=== PATIENT | male | born 1950 | race Hispanic/Latino ===

== ENCOUNTER 2016-07-28 23:41 | Emergency (ER) | payer SELFPAY ==
[~2016-07-28 23:41] MED LIST: ADRENALIN ONE; CALCIUM CHLORIDE IV ONE; SODIUM BICARBONATE IV ONE
--- NOTE | 2016-07-29 02:47 | Emergency Department Report ---
ED CPR HPI - General Chief Complaint: Cardiac Arrest/CPR Stated Complaint: CARDIAC ARREST Time Seen by Provider: 07/28/16 23:41 Source: EMS Mode of arrival: Stretcher Limitations: Other - History of Present Illness Initial Comments: 65-year-old male presents to the hospital status post cardiac arrest. Patient brought into the ER intubated with chest compressions in progress. EMS reports that it was a witnessed arrest and patient fell off the bed and became unresponsive. Upon their arrival patient was in V. fib and received a total of 7 shocks, 5 epinephrines and now presents in asystole. They estimate the total downtime has been at least one hour. ED Review of Systems ROS: Stated complaint: CARDIAC ARREST Other details as noted in HPI Comment: Unobtainable due to pts medical conditions ED Past Medical Hx - Past Medical History Hx Hypertension: Yes - Social History Smoking Status: Unknown if ever smoked ED Physical Exam - General Limitations: Other - Other Other exam information: General: Unresponsive Head exam: contusion to top of scalp Eyes exam: Pupils fixed and dilated ENT: Orally intubated Neck exam: c collar Respiratory exam: Equal breath sounds with bagging Cardiovascular: Pulseless no audible heart beat Abdomen: Soft, nondistended, and nontender Extremity: No spontaneous movement but no deformity Back: Normal Inspection Neurologic: GCS equals 3 ED Course - Reevaluation(s) Reevaluation #1: 07/29/16 02:46 Patient received additional medications included epinephrine, sodium bicarbonate , and calcium remained in asystole despite resuscitation efforts. Reported Accu -Chek was greater than 100. Given extended duration of pulselessness, fixed and dilated pupil, lack of response to resuscitation efforts efforts were discontinued at 23:44. ED Medical Decision Making - Medical Decision Making despite resuscitation efforts patient remained in asystole. Time of 23: 44. Family members (greater than 20 present in the ED) were informed of patient 's - Differential Diagnosis mi, pe, cva, arrhythmia Critical Care Time: Yes Critical care time in (mins) excluding proc time.: 15 Critical care attestation.: If time is entered above; I have spent that time in minutes in the direct care of this critically ill patient, excluding procedure time. ED Disposition Clinical Impression: Cardiopulmonary arrest Disposition: Is pt being admited?: No Does the pt Need Aspirin: No Condition: Stable Time of Disposition: 23:50
== END 2016-07-29 05:06 ==
LOC: ED 23:41
DX: I46.9 Cardiac arrest, cause unspecified (principal)
CPT/HCPCS: 92950; 99285; J0171